=== PATIENT | female | born 1980 | race Two or more races ===

== ENCOUNTER 2017-04-22 14:06 | Emergency (ER) | payer BC ==
[~2017-04-22] VITALS: Ht 167.6 cm; Wt 140.6 kg
[2017-04-22] MEDS ORDERED: NEOMY/POLYMYX B/HC OTIC SUSP 10 ML BOTTLE OT ONE (16:45)
[2017-04-22] MEDS ORDERED: AMOXICILLIN TRIHYDRATE 250 MG CAPSULE PO ONE (16:50)
[2017-04-22] MEDS ORDERED: NEOMY/POLYMYX B/HC OTIC SUSP 10 ML BOTTLE ONE (17:06)
--- NOTE | 2017-04-22 17:06 | NUR ---
MEDS ADMINISTERED, PT D/C'D HOME, ACI/RX X3 GIVEN. PT AMBULATED W/O DIFF , TOOK ALL BELONGINGS.
[2017-04-22 17:08] VITALS: BP 109/75
[2017-04-22] MEDS ORDERED: AMOXICILLIN TRIHYDRATE 250 MG CAPSULE ONE (17:10)
== END 2017-04-22 17:09 | disposition home or self-care (01) ==
LOC: ER 14:07
DX: H66.92 Otitis media, unspecified, left ear (principal); H60.91 Unspecified otitis externa, right ear; Z88.5 Allergy status to narcotic agent; Z90.49 Acquired absence of other specified parts of digestive tract
CPT/HCPCS: 99283; A4663